=== PATIENT | female | born 1945 | race Caucasian/White ===

== ENCOUNTER 2018-01-01 14:16 | Emergency (ER) | payer OTHER, MEDICARE, MEDICAID ==
[~2018-01-01 14:16] MED LIST: CELE20TA PO; CYCL-36 PO; ETOD300 PO; LORT5TAB PO
[2018-01-01 14:35] VITALS: BP 187/88; PULSE 67; RESP 18; TEMP 97.7; O2SAT 97
--- NOTE | 2018-01-01 15:59 | PD ---
HPI Chief Complaint: Laceration/Skin Injury Time Seen by Provider: 15:54 Travel History International Travel<30 days: No Contact w/Intl Traveler<30days: No Traveled to known affect area: No History of Present Illness HPI 72-year-old female that presents to the ED for evaluation of laceration to her left index finger. Per patient is happened today while she was cleaning a checkering machine adjuster. Per patient she accidentally was cleaning the checkering machine adjuster when she was trying to hold another dish and she accidentally turned checkering machine adjuster on with her finger on it. She suffered a cut to it. [facility] seen [facility] and sent here for suturing. She was given a tetanus booster there. She states that her pain is 8 out of 10 on the tip of the digit. She has a cut to the area with some bleeding. She was put in a dressing by the [facility]. Denies any allergies to medication. Denies any injuries to this finger in the past. No urinary or bowel movement issues. No allergies to medication. Injury occurred early this morning. PFSH Past Medical History Anxiety: Yes Depression: Yes Diminished Hearing: No Menopausal: Yes Past Surgical History Section: Yes Social History Alcohol Use: Yes (occassional) Tobacco Use: No Allergies-Medications (Allergen,Severity, Reaction): Coded Allergies: No Known Allergies (Verified Allergy, Mild, 04/08/08) Reported Meds & Prescriptions Reported Meds & Active Scripts Active Lortab 5/500 (Acetaminophen/Hydrocodone Bitart) 5 Mg/500 Mg Tab 1 Tab PO Q4HPRN FOR PAIN Flexeril (Cyclobenzaprine HCl) 10 Mg Tab 10 Mg PO TIDPRN Reported Celexa (Citalopram Hydrobromide) 20 Mg Tab 20 Mg PO HS Lodine (Etodolac) 300 Mg Cap 300 Mg PO BID Review of Systems Except as stated in HPI: all other systems reviewed are Neg Physical Exam Narrative GENERAL: SKIN: Warm and dry. HEAD: Atraumatic. Normocephalic. EYES: Pupils equal and round. No scleral icterus. No injection or drainage. ENT: No nasal bleeding or discharge. Mucous membranes pink and moist. Tongue is midline. No uvula deviation. NECK: Trachea midline. No JVD. CARDIOVASCULAR: Regular rate and rhythm. RESPIRATORY: No accessory muscle use. Clear to auscultation. Breath sounds equal bilaterally. GASTROINTESTINAL: Abdomen soft, non-tender, nondistended. Hepatic and splenic margins not palpable. MUSCULOSKELETAL: Extremities without clubbing, cyanosis, or edema. No obvious deformities. Full range of motion of all digits. Patient has a superficial cut to the distal left third digit. About less than 1 cm in diameter. Bleeding noted. Tender to touch. NEUROLOGICAL: Awake and alert. No obvious cranial nerve deficits. Motor grossly within normal limits. Five out of 5 muscle strength in the arms and legs. Normal speech. PSYCHIATRIC: Appropriate mood and affect; insight and judgment normal. Data Data Last Documented VS Vital Signs Date Time Temp Pulse Resp B/P (MAP) Pulse Ox O2 Delivery O2 Flow Rate FiO2 01/01/18 14:35 97.7 67 18 187/88 (121) 97 Orders Orders Wound Care (01/01/18 15:55) Bupivacaine Pf 0.5% Inj (Marcaine Pf 0.5 (01/01/18 16:00) Lidocaine 1% Inj (50 Ml) (Xylocaine 1% I (01/01/18 16:00) MDM Medical Decision Making Medical Screen Exam Complete: Yes Emergency Medical Condition: Yes Medical Record Reviewed: Yes Differential Diagnosis Laceration versus abrasion versus skin there Narrative Course 72-year-old female that presents to the ED for evaluation of laceration. Patient was properly examined and was found to have signs and symptoms consistent appears to be laceration to the distal left fifth digit. After explained procedure to the patient and she agreed to it laceration was repaired as stated in procedure note. Patient was told to get sutures removed in 2 weeks. Given prescription for antibiotics to cover for infection. Ice or warm compresses. Motrin For pain. See ED worsening symptoms. Procedures Procedure Narrative LACERATION LOCATION: left 3rd digit LENGTH: 1 cm NUMBER OF STITCHES/DELBERT: 5 sutures REPAIR: The area of the laceration was prepped with Betadine and sterilely draped. The laceration was infiltrated with 1% Xylocaine. The wound was copiously irrigated and explored without evidence of foreign body, tendon injury or neurovascular injury. The wound was closed using 4-0 prolene. This was a 1 layer repair. A sterile dressing was applied. The patient was advised to keep the dressing clean and dry. Patient tolerated the procedure well. Diagnosis Primary Impression: Finger laceration Qualified Codes: S61.213A - Laceration without foreign body of left middle finger without damage to nail, initial encounter Patient Instructions: General Instructions Additional Instructions: Wound care daily with soap and water. You can apply bandaid if needed. Neosporyn or OTC antibiotic ointment to area as needed twice a day for at least 2 weeks to help with scarring and prevent infection. Meoderma OTC for scarring if needed. Avoid sun exposure for 2 months as the sun could make scar darker and more noticeable. Get sutures removed in 14 days. See ED if worst. Med/Other Pt SpecificInfo: Prescription(s) given, Wound Care Disposition: 01 DISCHARGE HOME Condition: Stable Morgan Carver Jan 01, 2018 15:59
[2018-01-01] MEDS ORDERED: LIDOCAINE HCL 1% 50 ML VIAL INFIL ONE (16:00)
[2018-01-01] MEDS ORDERED: BUPIVACAINE HCL PF 0.5% 10 ML VIAL INFIL ONE (16:00)
[2018-01-01] MEDS ORDERED: CEPH-460 PO (17:03)
[2018-01-01] MEDS ORDERED: DICL75TA PO (17:03)
== END 2018-01-01 17:36 | disposition home or self-care (01) ==
LOC: NED 14:16 → NEPA 17:36
DX: S61.213A Laceration without foreign body of left middle finger without damage to nail, initial encounter (principal); F41.9 Anxiety disorder, unspecified; F32.9 Major depressive disorder, single episode, unspecified; W26.8XXA Contact with other sharp object(s), not elsewhere classified, initial encounter; Z79.899 Other long term (current) drug therapy
CPT/HCPCS: 12001